=== PATIENT | male | born 1990 ===

== ENCOUNTER 2018-02-12 04:39 | Inpatient (IN) | payer MEDICAID ==
[2018-02-12 04:53] VITALS: TEMP 98.1
--- NOTE | 2018-02-12 05:34 | ED PDOC ---
HPI: Psych/Substance Abuse <Janey Aguillon - Last Filed: 02/12/18 14:13> Chief Complaint (Provider): Psychiastric evaluation History Per: Patient History/Exam Limitations: no limitations Onset/Duration Of Symptoms: Days (02/12/18) Current Symptoms Are (Timing): Still Present Additional History Per: Family (brother) Additional Complaint(s): 27 year old j carlos was brought to the ED by his brother for psychiatric evaluation. Reports feeling anxiousness and brother states he is not acting like himself. Patient states he wants to see a psychiatrist. PMD: Provider TBD <Meño Greene Y - Last Filed: 02/14/18 20:08> Time Seen by Provider: 02/12/18 04:40 Chief Complaint (Nursing): Psychiatric Evaluation Past Medical History Vital Signs: Last Vital Signs Temp 98.1 F 02/12/18 04:51 Pulse 90 02/12/18 09:30 Resp 18 02/12/18 09:30 BP 136/77 02/12/18 09:30 Pulse Ox 95 02/12/18 13:58 <Janey Aguillon - Last Filed: 02/12/18 14:13> Reviewed: Historical Data, Nursing Documentation, Vital Signs Vital Signs: Last Vital Signs Temp 98.1 F 02/12/18 04:51 Pulse 76 02/12/18 04:51 Resp 18 02/12/18 04:51 BP 135/88 02/12/18 04:51 Pulse Ox 97 02/12/18 04:51 - Medical History PMH: No Chronic Diseases - Surgical History Surgical History: No Surg Hx - Family History Other Family History: schizophrenia - Social History Current smoker - smoking cessation education provided: No Alcohol: Social Drugs: Denies <Meño Greene Y - Last Filed: 02/14/18 20:08> - Home Medications Home Medications: Ambulatory Orders Medication Instructions Recorded No Known Home Med 02/12/18 - Allergies Allergies/Adverse Reactions: Allergies Allergy/AdvReac Type Severity Reaction Status Date / Time No Known Allergies Allergy Verified 02/12/18 22:30 Review of Systems ROS Statement: Except As Marked, All Systems Reviewed And Found Negative Psych: Positive for: Anxiety <Meño Greene Y - Last Filed: 02/14/18 20:08> Physical Exam - Reviewed Nursing Documentation Reviewed: Yes Vital Signs Reviewed: Yes - Physical Exam Appears: Positive for: Non-toxic, No Acute Distress Head Exam: Positive for: ATRAUMATIC, NORMAL INSPECTION, NORMOCEPHALIC Skin: Positive for: Normal Color, Warm, Dry Neck: Positive for: Normal, Painless ROM, Supple. Negative for: Decreased ROM Cardiovascular/Chest: Positive for: Regular Rate, Rhythm. Negative for: Murmur Respiratory: Positive for: Normal Breath Sounds. Negative for: Decreased Breath Sounds, Accessory Muscle Use, Respiratory Distress Gastrointestinal/Abdominal: Positive for: Normal Exam, Bowel Sounds, Soft. Negative for: Tenderness, Guarding, Rebound Extremity: Positive for: Normal ROM. Negative for: Tenderness, Pedal Edema, Deformity Neurologic/Psych: Positive for: Alert (but appears confused at times. internally preoccupied), Mood/Affect (flat; not following instructions). Negative for: Oriented <Meño Greene Y - Last Filed: 02/14/18 20:08> - Laboratory Results Result Diagrams: 02/12/18 06:01 02/12/18 06:01 <Janey Aguillon J - Last Filed: 02/12/18 14:13> - Laboratory Results Result Diagrams: 02/12/18 06:01 02/12/18 06:01 - ECG O2 Sat by Pulse Oximetry: 97 (RA) Pulse Ox Interpretation: Normal <Meño Greene Y - Last Filed: 02/14/18 20:08> Medical Decision Making Medical Decision Making: Time: 521 Initial Plan: psychiatric evaluation --EKG --Acetaminophen --Alcohol serum --BMP --Drug Screen --Salicylate --CBC w/ differential --Urine C&S --1:1 Observation --Urinalysis --Reevaluation Time: 526 Patient placed on 1:1 observation. He is harmful to self and other. Time: 699 Patient signed out to Dr. Kathleen by me pending crisis evaluation. Scribe Attestation: Documented by Elio Uriarte, acting as a scribe for Meño Greene MD Provider Scribe Attestation: All medical record entries made by the Scribe were at my direction and personally dictated by me. I have reviewed the chart and agree that the record accurately reflects my personal performance of the history, physical exam, medical decision making, and the department course for this patient. I have also personally directed, reviewed, and agree with the discharge instructions and disposition. <Meño Greene Y - Last Filed: 02/14/18 20:08> Disposition <Janey Aguillon J - Last Filed: 02/12/18 14:13> - Patient ED Disposition Is Patient to be Admitted: Transfer of Care - Disposition Disposition: Transfer of Care Disposition Time: 07:00 <Meño Greene Y - Last Filed: 02/14/18 20:08> - Clinical Impression Clinical Impression: Autism - Disposition Condition: STABLE
[2018-02-12 06:09] LABS: BASO # 0.1 K/uL (0.0-0.2); BASO % 0.8 % (0.0-2.0); EOS % 0.1 % (0.0-4.0); HEMOGLOBIN 14.6 g/dL (12.0-18.0); LYMPH # 1.2 K/uL (1.0-4.3); LYMPH % 15.5 % (20.0-40.0); MEAN CELL VOLUME 83.6 fl (80.0-94.0); MEAN CORPUSCULAR HEMOGLOBIN 28.6 pg (27.0-31.0); MEAN CORPUSCULAR HGB CONC 34.2 g/dL (33.0-37.0); MEAN PLATELET VOLUME 6.9 fl (7.2-11.7); MONO # 0.5 K/uL (0.0-0.8); MONO % 6.3 % (0.0-10.0); NEUT # 5.9 K/uL (1.8-7.0); NEUT % 77.3 % (50.0-75.0); RBC 5.1 Mil/uL (4.40-5.90); RED CELL DISTRIBUTION WIDTH 12.9 % (11.5-14.5); WHITE BLOOD COUNT 7.7 K/uL (4.8-10.8)
[2018-02-12 07:06] LABS: BLOOD UREA NITROGEN 16 mg/dl (9-20); CALCIUM 9.8 mg/dL (8.4-10.2); GFR AFRICAN-AMERICAN > 60; GFR NON-AFRICAN AMERICAN > 60
[2018-02-12 07:10] LABS: ACETAMINOPHEN < 10.0 ug/ml (10.0-30.0); SALICYLATE < 1.0 mg/dl
--- NOTE | 2018-02-12 08:25 | ED PDOC ---
- Laboratory Results Result Diagrams: 02/12/18 06:01 02/12/18 06:01 - ECG O2 Sat by Pulse Oximetry: 95 Medical Decision Making Medical Decision Making: MEDICAL CLEARANCE: Pt medically cleared for psych admission. Disposition - Clinical Impression Clinical Impression: Autism - POA Present On Arrival: None - Disposition Disposition: Admitted as In-Patient Disposition Time: 13:57 Condition: STABLE Forms: [facility] ([place]) Addendum Addendum: 02/12/18 07:00 Pt signed out by Dr. Greene pending Crisis evaluation.
[2018-02-12 12:10] LABS: URINE BACTERIA RARE (<OCC); URINE BILIRUBIN NEGATIVE (NEGATIVE); URINE BLOOD NEGATIVE (NEGATIVE); URINE CLARITY SLIGHTY-CLOUDY (Clear); URINE COLOR YELLOW (YELLOW); URINE GLUCOSE (UA) NEG (Normal); URINE LEUKOCYTE ESTERASE NEG Leu/uL (Negative); URINE PROTEIN 30 mg/dL (NEGATIVE)
[2018-02-12 12:15] LABS: BARBITURATES, UR NEGATIVE (NEGATIVE); BENZODIAZEPINES, UR NEGATIVE (NEGATIVE); OPIATES, UR NEGATIVE (NEGATIVE); PHENCYCLIDINE, UR NEGATIVE (NEGATIVE)
--- NOTE | 2018-02-12 14:25 | ED PDOC ---
- Laboratory Results Result Diagrams: 02/12/18 06:01 02/12/18 06:01 - ECG O2 Sat by Pulse Oximetry: 95 (RA) Pulse Ox Interpretation: Normal - Radiology X-Ray: Interpreted by Me X-Ray Interpretation: No Acute Disease, Other (hyperinflation without effusion or infiltrate. ) Medical Decision Making Medical Decision Makin:00: Transfer of staff from Dr. Lebron to Dr. Aguillon. Patient is pending admission for psycho stabilization and is pending bed availability and CXR. 14:33: Accession No. : [id number] Patient Name / ID : JEAN PIERRE BLOUNT / [id number] Exam Date : 02/12/2018 14:08:47 ( Approved ) Study Comment : Sex / Age : M / 27Y Creator : Kris Zimmer MD Dictator : Kris Zimmer MD Cabin Outfitter : Painter Helper : Kris Zimmer MD Approver2 : Report Date : 02/12/2018 14:39:27 My Comment : HISTORY: Medical clearance COMPARISON: No prior. FINDINGS: LUNGS: No active pulmonary disease. PLEURA: No significant pleural effusion identified, no pneumothorax apparent. CARDIOVASCULAR: Normal. OSSEOUS STRUCTURES: No significant abnormalities. VISUALIZED UPPER ABDOMEN: Normal. OTHER FINDINGS: None. IMPRESSION: No active disease. Pt continues to be medically clear for psychiatric admission 17:28: There is a bed available at [facility]. Patient will be transferred for admission for inpatient psychiatric stabilization. Scribe Attestation: Documented by Elsi Etienne, acting as a scribe for Janey Aguillon MD. Provider Scribe Attestation: All medical record entries made by the Scribe were at my direction and personally dictated by me. I have reviewed the chart and agree that the record accurately reflects my personal performance of the history, physical exam, medical decision making, and the department course for this patient. I have also personally directed, reviewed, and agree with the discharge instructions and disposition. Disposition - Clinical Impression Clinical Impression: Autism - POA Present On Arrival: None - Disposition Disposition: Other Institution Disposition Time: 17:00 Condition: STABLE
--- NOTE | 2018-02-12 14:40 | RAD ---
HISTORY: Medical clearance COMPARISON: No prior. FINDINGS: LUNGS: No active pulmonary disease. PLEURA: No significant pleural effusion identified, no pneumothorax apparent. CARDIOVASCULAR: Normal. OSSEOUS STRUCTURES: No significant abnormalities. VISUALIZED UPPER ABDOMEN: Normal. OTHER FINDINGS: None. IMPRESSION: No active disease.
[2018-02-12 22:07] VITALS: BP 127/77; PULSE 72; RESP 16
--- NOTE | 2018-02-13 11:33 | CARD ---
APPROVED REPORT EKG Measurement Heart [id number] <Conclusion> Normal sinus rhythm with sinus arrhythmia Possible Left atrial enlargement Left ventricular hypertrophy Abnormal ECG
[2018-02-14 20:07] VITALS: O2SAT 97
== END 2018-02-12 22:20 | disposition short-term general hospital (02) | DRG 884 ==
LOC: H.ER 04:39 → H.ERHOLD 13:56
PROVIDERS: ADMIT Psychiatry & Neurology Psychiatry; ATTEND Psychiatry & Neurology Psychiatry
DX: F84.0 Autistic disorder (principal); Z81.8 Family history of other mental and behavioral disorders